=== PATIENT | male | born 1955 | race Caucasian/White ===

== ENCOUNTER 2020-12-14 09:27 | Outpatient (RCR) | payer SELFPAY | END 2020-12-26 23:59 | disposition home or self-care (01) | LOC: SPT 09:27 | PROVIDERS: PCP Physician Assistant Medical; Referring Provider Physician Assistant Medical; Visit Provider Physician Assistant Medical | DX: R42 Dizziness and giddiness (principal) | CPT/HCPCS: 95992; 97162 ==

== ENCOUNTER → 2021-01-12 09:53 | Outpatient (BNVA) | payer SELFPAY | PROVIDERS: PCP Physician Assistant Medical; Visit Provider Surgery | DX: Z12.11 Encounter for screening for malignant neoplasm of colon (principal) | CPT/HCPCS: 87635 ==

== ENCOUNTER 2021-01-18 06:57 | Day surgery (SDC) | payer SELFPAY ==
[2021-01-16 09:41] VITALS: BMI 31.1
--- NOTE | 2021-01-18 07:15 | ANES.PREANE2 ---
Pre-Anesthetic Assessment Pre-Anesthetic Assessment: Height/Weight: Height 1.83 m Weight 104.326 kg Preop Diagnosis: Screening colonoscopy Proposed Procedure: Operation Date: 01/18/21 08:00 Proposed Procedures p Colonoscopy 98493 z12.11(Not Applicable) - Santiago Brooks MD Familial anesthetic complications: None Was Beta Gael taken within 24 hours: N/A Was Clonidine taken within 24 hours: N/A Last intake: NPO > 8 hrs Social: Social History: No alcohol and No tobacco Exam: Pre-Anes Outpt Exam: alert, oriented x 3, clear to auscultation bilaterally and regular rate & rhythm Airway: Cervical ROM: WNL MP: 3 Dentition: Full Neuropsych: Neuropsych: Anxiety Comments: vertigo Anesthetic Plan: ASA status: 1 Anesthesia: MAC Risk of > 500 ml blood loss (7ml/kg in children): No PFSH Anesthesia PFSH: Social History Smoking and tobacco status: never smoked Alcohol intake: never Data Anesthesia Cardiac Studies: No Data to Display
[2021-01-18 07:24] VITALS: BP 155/87; PULSE 88; RESP 16; TEMP 36.1; O2SAT 97
--- NOTE | 2021-01-18 07:45 | P.HP_ITS ---
Same Day Surgery H&P Indication for Procedure/HPI DATE OF PROCEDURE: January 18, 2021 CHIEF COMPLAINT/INDICATIONFOR SURGICAL PROCEDURE: Screening colonoscopy PREOP DIAGNOSIS: Screening colonoscopy PLANNED PROCEDRUE: Operation Date: 01/18/21 08:00 Proposed Procedures p Colonoscopy 76133 z12.11(Not Applicable) - Santiago Brooks MD This is a pleasant 64 years old gentleman never had a screening colonoscopy before, according to the patient was found occult blood in stool,he does report his grandpa of his father's side had colon cancer age of 60. Patient comes today to discuss screening colonoscopy. Interim history 01/18/2021 Patient comes today for screening colonoscopy ROS All systems have been reviewed negative except as per the above or per problem list. Medications/Allergies* Home Medications Medication Instructions Recorded Confirmed Type diazepam 10 mg tablet 10 mg PO Q6H PRN tab 11/30/20 01/18/21 History Allergies/Adverse Reactions Allergy/AdvReac Type Severity Reaction Status Date / Time Sulfa (Sulfonamide Allergy Skin Verified 01/18/21 07:45 Antibiotics) irritation sulfamethoxazole Allergy uknown Verified 01/18/21 07:45 [From Bactrim] trimethoprim [From Bactrim] Allergy uknown Verified 01/18/21 07:45 Pertinent History/Comorbid Conditions* Social History Smoking and tobacco status: never smoked Alcohol intake: never Pertinent Exam Findings alert, oriented x 3, clear to auscultation bilaterally, regular rate & rhythm and operative site marked (Abdominal examination nontender nondistended) Recommendations Surgery/Procedure today (Screening colonoscopy with possible biopsy and possible polyp) Coding Level of Care Code Acute Pediatric Ophthalmologist for Zonia Back
[2021-01-18] MEDS: sodium chloride 0.9% 1,000 ML 30 ML IV (07:50)
[2021-01-18 08:16] VITALS: BP 108/77; PULSE 82; RESP 16; TEMP 36.7; O2SAT 93
--- NOTE | 2021-01-18 08:16 | ANE.PACU2 ---
Inpatient post-anesthesia follow up: Airway intact: Yes Vital signs: Temperature 97 F Pulse Rate 88 Respiratory Rate 16 Blood Pressure 155/87 Pulse Oximetry 97 Oxygen Delivery Me thod Room Air Oxygen Flow Rate Fraction of Inspir ed Oxygen Hydration adequate: Yes Nausea and vomiting: No Pain level: 1 Mental status: Baseline
[2021-01-18 08:40] VITALS: BP 138/79; PULSE 80; RESP 18; O2SAT 96
== END 2021-01-18 08:55 | disposition home or self-care (01) ==
PROVIDERS: PCP Physician Assistant Medical; Visit Provider Surgery
PROC: 0DJD8ZZ Inspection of Lower Intestinal Tract, Via Natural or Artificial Opening Endoscopic (ICD-10-PCS; CPT 45378; principal; 2021-01-18 08:00)
DX: Z12.11 Encounter for screening for malignant neoplasm of colon (principal); K57.30 Diverticulosis of large intestine without perforation or abscess without bleeding
CPT/HCPCS: 45378; J2704; J7030